=== PATIENT | female | born 1990 | race Caucasian/White ===

== ENCOUNTER 2017-10-24 07:00 | Emergency (ER) | payer SELFPAY ==
--- NOTE | 2017-10-24 09:54 | ER Document Report ---
ED General - General Chief Complaint: Facial Swelling Stated Complaint: POSSIBLE RASH Time Seen by Provider: 10/24/17 09:22 Mode of Arrival: Ambulatory Information source: Patient - HPI Patient complains to provider of: Rash on the face Onset: Other - 27-year-old otherwise healthy female presents for evaluation of a red rash on her face which developed this morning after her dog had laid on her pillow and then she subsequently slept on it. She notes that she woke up with itching watery eyes as well as itching in her ears and her also had a rash noted on his leg where it had touched the pillow. She denies any use of new detergents new closed new lotions or other things. She has never had any allergic reactions in the past, she denies any other rashes, shortness of breath, wheezing, chest pain abdominal pain diarrhea constipation dysuria or other symptoms. - Related Data Allergies/Adverse Reactions: No Known Allergies Allergy (Unverified 10/24/17 07:01) Past Medical History - General Information source: Patient - Social History Smoking Status: Unknown if Ever Smoked Family History: None Review of Systems - Review of Systems -: Yes All other systems reviewed and negative Physical Exam - Vital signs Vitals: Temp Pulse Resp BP Pulse Ox 99.0 F 95 18 125/75 97 10/24/17 07:05 10/24/17 07:05 10/24/17 07:05 10/24/17 07:05 10/24/17 07:05 - General General appearance: Appears well In distress: None - HEENT Head: Normocephalic Eyes: Normal Conjunctiva: Injected Extraocular movements intact: Yes Eyelashes: Normal Pupils: PERRL Ears: Normal External canal: Normal Neck: Normal - Respiratory Respiratory status: No respiratory distress Chest status: Nontender Breath sounds: Normal Chest palpation: Normal - Cardiovascular Rhythm: Regular Heart sounds: Normal auscultation Murmur: No - Abdominal Inspection: Normal Distension: No distension Tenderness: Nontender - Back Back: Normal - Extremities General upper extremity: Normal inspection, Normal strength General lower extremity: Normal inspection, Normal strength - Neurological Neuro grossly intact: Yes Cognition: Normal Orientation: AAOx4 - Psychological Associated symptoms: Normal affect - Skin Notes: The face demonstrates an erythematous, blanchable, slightly raised rash which extends from the superior aspect above both eyes underneath the cheeks extending in the left ear with some serous discharge. No obvious desquamation, negative nikolsky sign Course - Re-evaluation Re-evalutation: 10/24/17 18:42 19-year-old female has got what appears to be an allergic rash involving the face no other organ systems involved no other symptoms to suggest more serious anaphylactic reaction. Has not had any allergic reactions like this in the past , as such we will treat symptomatically with use of antihistamine as well as steroids. Encouraged to follow-up with an automatic lathe operator or primary care physician. Do not believe this represents a more serious underlying condition such as a malar rash or other is it is itchy rapid in onset. - Vital Signs Vital signs: Temp Pulse Resp BP Pulse Ox 98.8 F 82 16 126/74 H 100 10/24/17 10:08 10/24/17 10:08 10/24/17 10:08 10/24/17 10:08 10/24/17 10:08 Discharge - Discharge Clinical Impression: Itchy eyes Allergic Qualifiers: Encounter type: initial encounter Qualified Code(s): T78.40XA - Allergy, unspecified, initial encounter Condition: Good Disposition: HOME, SELF-CARE Instructions: Acute Allergic Reaction ([facility]), Contact Dermatitis ([facility]) Prescriptions: Cetirizine HCl [Zyrtec] 10 mg PO DAILY #20 capsule Prednisone [Deltasone 20 mg Tablet] 3 tab PO DAILY 5 Days #15 tablet Forms: Smoking Cessation Education
[2017-10-24 10:11] VITALS: BP 126/74
[2017-10-24] MEDS ORDERED: PREDNISONE 20 MG TABLET PO ONE (10:14)
== END 2017-10-24 10:53 | disposition home or self-care (01) ==
LOC: ER 07:00
DX: T78.40XA Allergy, unspecified, initial encounter (principal); R21 Rash and other nonspecific skin eruption; L29.8 Other pruritus; X58.XXXA Exposure to other specified factors, initial encounter
CPT/HCPCS: 99283; J7512

== ENCOUNTER 2018-08-08 16:32 | Emergency (ER) | payer SELFPAY ==
--- NOTE | 2018-08-08 16:53 | ER Document Report ---
ED Medical Screen (RME) - General Chief Complaint: Head Injury Stated Complaint: FALL/HEAD INJURY Time Seen by Provider: 08/08/18 16:52 Mode of Arrival: Ambulatory Information source: Patient Notes: Patient presents to the emergency department post head injury. 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 She reports she had a shunt since 2013. She reports she woke up this morning did not feel well went work anyways came home took a shower when she was walking to the kitchen she fell and hit the base of her head on the counter. She reports the right side of her neck is hurting where her shunt is placed. She reports vomiting since that time multiple times. No change in LOC. He is also complaining of left-sided abdominal pain now. Dictation of this chart was performed using voice recognition software; therefore, there may be some unintended grammatical errors. I have greeted and performed a rapid initial assessment of this patient. A comprehensive ED assessment and evaluation of the patient, analysis of test results and completion of the medical decision making process will be conducted by additional ED providers. TRAVEL OUTSIDE OF THE [place] IN LAST 30 DAYS: No - Related Data Allergies/Adverse Reactions: No Known Allergies Allergy (Unverified 10/24/17 07:01) Past Medical History Renal/ Medical History: Denies: Hx Peritoneal Dialysis
[2018-08-08] MEDS ORDERED: ONDANSETRON 4 MG TAB.RAPDIS PO ONE (16:54)
--- NOTE | 2018-08-08 17:24 | RADIOLOGY REPORT (SQ) ---
EXAM DESCRIPTION: CT HEAD WITHOUT COMPLETED DATE/TIME: 08/08/2018 5:05 pm REASON FOR STUDY: head injury, shunt COMPARISON: None. TECHNIQUE: Axial images acquired through the brain without intravenous contrast. Images reviewed wi th bone, brain and subdural windows. Additional sagittal and coronal reconstructions were generated. Images stored on PACS. All CT scanners at this facility use dose modulation, iterative reconstruction, and/or weight based d osing when appropriate to reduce radiation dose to as low as reasonably achievable (ALARA). [facility]: Dose Right [facility]: CareDose [facility]: Dose Right [facility]: Teradose 4D [facility]: Smart avandeo RADIATION DOSE: CT Rad equipment meets quality standard of care and radiation dose reduction techniq ues were employed. CTDIvol: 53.2 mGy. DLP: 1017 mGy-cm. mGy. LIMITATIONS: None. FINDINGS: VENTRICLES: There is mild ventriculomegaly for age with a right frontal approach shunt cat heter, tip projecting in the vicinity of the right thalamic head CEREBRUM: No masses. No hemorrhage. No midline shift. No evidence for acute infarction. Normal gra y/white matter differentiation. No areas of low density in the white matter. CEREBELLUM: No masses. No hemorrhage. No alteration of density. No evidence for acute infarction. EXTRAAXIAL SPACES: There is a mixed, although predominantly low-attenuation subdural collection about the left hemisphere measuring 9 mm in maximum coronal thickness. There is no significant midline sh ift. ORBITS AND GLOBE: No intra- or extraconal masses. Normal contour of globe without masses. CALVARIUM: No fracture. PARANASAL SINUSES: No fluid or mucosal thickening. SOFT TISSUES: No mass or hematoma. OTHER: No other significant finding. IMPRESSION: 1. There is a mixed, although predominantly low-attenuation subdural collection about th e left hemisphere measuring 9 mm in maximum coronal thickness. There is no significant midline shift . 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 2. There is mild ventriculomegaly for age with a right frontal approach shunt catheter, tip projectin g in the vicinity of the right thalamic head. EVIDENCE OF ACUTE STROKE: NO. Findings reported by telephone to Dr. Sarah, 1714 hours, 08/08/2018. COMMENT: Quality ID # [id number]: Final reports with documentation of one or more dose reduction techniques (e.g., Automated exposure control, adjustment of the mA and/or kV according to patient size, use of iterative reconstruction technique) TECHNICAL DOCUMENTATION: JOB ID: [id number] [employer]- All Rights Reserved Reading location - IP/workstation name: [email or web address]
--- NOTE | 2018-08-08 17:49 | ER Document Report ---
ED General - General Chief Complaint: Head Injury Stated Complaint: FALL/HEAD INJURY Time Seen by Provider: 08/08/18 16:52 Primary Care Provider: [facility] [Provider Group] - Follow up in 3-5 days (primary care. 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 Patient reports that she had a "dizzy spell" while she was in her kitchen today and fell and hit the back of her head on the counter. She denies loss of consciousness. She is now complaining of a mild headache that she describes as being her entire head. She explicitly states that it is not the worst headache she has had. She rates it as a 3/10, and as an aching sensation. She has associated nausea, without vomiting, reports that she has nausea almost every day of her life and it is not particularly worse today. She states that she does get episodes of lightheadedness ever since her HOME HOUSEKEEPER shunt was place. She had imaging in triage that demonstrated a likely chronic subdural hematoma, and when asked about this the patient reports that she has had "brain" bleeds in the past a few years ago. Denies any vision changes, neck pain, numbness, tingling, or weakness. Past Medical History: hydrocephalus Past Surgical History: HOME HOUSEKEEPER shunt Social History: Denies tobacco, alcohol, or drug use. Family History: Reviewed and noncontributory for presenting illness Allergies: Reviewed, see documented allergy list. REVIEW OF SYSTEMS: Other than noted above, the 12 point review of systems was reviewed with the patient and were negative, all pertinent findings are included in the HPI. PHYSICAL EXAMINATION: Vital signs reviewed, nursing noted reviewed. GENERAL: Well-appearing, well-nourished and in no acute distress. HEAD: Atraumatic, normocephalic. EYES: Eyes appear normal, extraocular movements intact, sclera anicteric, conjunctiva are normal. PERRLA ENT: nares patent, oropharynx clear without exudates. Moist mucous membranes. NECK: Normal range of motion, supple without lymphadenopathy LUNGS: Breath sounds clear to auscultation bilaterally and equal. No wheezes rales or rhonchi. HEART: Regular rate and rhythm without murmurs ABDOMEN: Soft, nontender, normoactive bowel sounds. No rebound, guarding, or rigidity. No masses appreciated. EXTREMITIES: Nontender, good range of motion, no pitting or edema. NEUROLOGICAL: No focal neurological deficits. Moves all extremities spontaneously Motor and sensory grossly intact on exam. PSYCH: Normal mood, normal affect. SKIN: Warm, Dry, normal turgor, no rashes or lesions noted on exposed skin TRAVEL OUTSIDE OF THE [place] IN LAST 30 DAYS: No - Related Data Allergies/Adverse Reactions: No Known Allergies Allergy (Unverified 10/24/17 07:01) Past Medical History - General Information source: Patient - Social History Smoking Status: Never Smoker Frequency of alcohol use: None Drug Abuse: Marijuana Family History: None Patient has suicidal ideation: No Patient has homicidal ideation: No Renal/ Medical History: Denies: Hx Peritoneal Dialysis Past Surgical History: Reports: Hx Gynecologic Surgery Physical Exam - Vital signs Vitals: Temp Pulse Resp BP Pulse Ox 98.7 F 110 H 16 137/75 H 100 08/08/18 16:55 08/08/18 16:55 08/08/18 16:55 08/08/18 16:55 08/08/18 16:55 Course - Re-evaluation Re-evalutation: 08/08/18 18:58 Patient seen and examined, vital signs reviewed. Patient appeared well on exam, no acute distress, only really complaining of mild nausea. Imaging results reviewed, CT demonstraed HOME HOUSEKEEPER shunt and like chronic subdural hematoma, but "could not completely excluded acute on chronic" Bloodwork unremarkable. Discussed with Dr. Rivas, with trauma surgery, who reviewed the patient's images and agreed with me that this was a chronic subdural hematoma, the patient verifies that she is had a history of "brain bleeds in the past" and I do not believe the patient sustained an acute on chronic subdural hematoma based on her imaging today, and her clinical presentation as the patient only complains of a mild headache that she on her own accord describes not the worst headache of her life, and has nausea that was easily resolved with a single dose of Reglan. Patient is feeling much better on my reevaluation, I feel that she can safely be discharged home, she is given referral to [facility] neurosurgery to establish care and follow-up. Patient is agreeable with all this plan of care advised to return to the emergency department she had any worsening symptoms. Laboratory 08/08/18 08/08/18 08/08/18 17:41 17:41 17:41 WBC 8.9 RBC 4.74 Hgb 15.1 Hct 43.9 MCV 93 MCH 31.9 MCHC 34.5 RDW 13.4 Plt Count 296 Seg Neutrophils % 74.5 Lymphocytes % 16.9 Monocytes % 7.8 Eosinophils % 0.3 Basophils % 0.5 Absolute Neutrophils 6.6 Absolute Lymphocytes 1.5 Absolute Monocytes 0.7 Absolute Eosinophils 0.0 Absolute Basophils 0.0 Sodium 144.0 Potassium 4.0 Chloride 106 Carbon Dioxide 25 Anion Gap 13 BUN 12 Creatinine 0.84 Est GFR ( Amer) > 60 Est GFR (Non-Af Amer) > 60 Glucose 87 Calcium 10.2 Total Bilirubin 0.6 Direct Bilirubin 0.3 Neonat Total Bilirubin Not Reportable Neonat Direct Bilirubin Not Reportable Neonat Indirect Bili Not Reportable AST 16 ALT 17 Alkaline Phosphatase 53 Total Protein 8.7 H Albumin 5.1 H Serum HCG, Qual NEGATIVE Head CT 08/08/18 16:54 IMPRESSION: 1. There is a mixed, although predominantly low-attenuation subdural collection about the left hemisphere measuring 9 mm in maximum coronal thickness. There is no significant midline shift. Findings likely reflect chronic subdural hematoma, however a component of acute on chronic hemorrhage is not strictly excluded. 2. There is mild ventriculomegaly for age with a right frontal approach shunt catheter, tip projecting in the vicinity of the right thalamic head. EVIDENCE OF ACUTE STROKE: NO. Findings reported by telephone to Dr. Sarah, 1714 hours, 08/08/2018. Shuntogram 08/08/18 17:24 IMPRESSION: There is a right frontal approach shunt catheter with catheter tubing projecting over the right skull, neck, hemithorax, and abdomen, with catheter tubing gently looped about the abdomen and pelvis, tip projecting over the left aspect of the sacrum. No catheter kinking or discontinuity. No acute abnormality of the lungs. Nonobstructive pattern of bowel gas. Essure devices project in the low pelvis. - Vital Signs Vital signs: Temp Pulse Resp BP Pulse Ox 98.7 F 110 H 27 H 141/82 H 99 08/08/18 16:55 08/08/18 16:55 08/08/18 19:01 08/08/18 19:00 08/08/18 19:01 - Laboratory Result Diagrams: 08/08/18 17:41 08/08/18 17:41 Laboratory results interpreted by me: 08/08/18 17:41 Total Protein 8.7 H Albumin 5.1 H Critical Care Note - Critical Care Note Total time excluding time spent on procedures (mins): 35 Comments: Critical care time 35 minutes exclusive from separate billable procedures for a patient requiring complex medical decision making, and high potential for clinical deterioration. In a patient with history of head bleed with head trauma, requiring consult with trauma surgery, close monitoring and evaluation. Time spent obtaining history from patient or surrogate, discussions with consultants, development of treatment plan with patient or surrogate, evaluation of patient's response to treatment, examination of patient, ordering and performing treatments and interventions, ordering and review of laboratory studies, re-evaluation of patient's condition, ordering and review of radiographic studies and review of old charts Discharge - Discharge Clinical Impression: Nausea, Lightheadedness Closed head injury Qualifiers: Encounter type: initial encounter Qualified Code(s): S09.90XA - Unspecified injury of head, initial encounter Condition: Stable Disposition: HOME, SELF-CARE Instructions: Head Injury Precautions ([facility]) Additional Instructions: Please monitor for worsening symptoms, if you develop numbness, weakness or tingling in any extremity, if your headache gets worse, do not hesitate to return to the emergency department to be reevaluated. Please follow-up with [facility] neurosurgery, phone number is call to schedule appointment. Prescriptions: Metoclopramide HCl [Reglan 10 mg Tablet] 1 tab PO Q8H PRN #15 tablet PRN Reason: nausea/vomiting Referrals: [facility] [Provider Group] - Follow up in 3-5 days (primary care. )
[2018-08-08] MEDS ORDERED: METOCLOPRAMIDE HCL INJ/PF 10 MG/2 ML SDV IV ONE (18:02)
[2018-08-08 18:07] LABS: ABSOLUTE LYMPHOCYTES (AUTO) 1.5 10^3/uL (0.5-4.7); ABSOLUTE MONOCYTES (AUTO) 0.7 10^3/uL (0.1-1.4); ABSOLUTE NEUT (AUTO) 6.6 10^3/uL (1.7-8.2); BASOPHILS % (AUTO) 0.5 % (0-2); EOSINOPHILS % (AUTO) 0.3 % (0-6); HEMATOCRIT 43.9 % (36.0-47.0); HEMOGLOBIN 15.1 g/dL (12.0-15.5); LYMPHOCYTES % (AUTO) 16.9 % (13-45); MEAN CORPUSCULAR HEMOGLOBIN 31.9 pg (27.0-33.4); MEAN CORPUSCULAR HGB CONC 34.5 g/dL (32.0-36.0); MEAN CORPUSCULAR VOLUME 93 fl (80-97); MONOCYTES % (AUTO) 7.8 % (3-13); PLATELET COUNT 296 10^3/uL (150-450); RED BLOOD COUNT 4.74 10^6/uL (3.72-5.28); RED CELL DISTRIBUTION WIDTH 13.4 % (11.5-14.0); SEGMENTED NEUTROPHILS % (AUTO) 74.5 % (42-78); TOTAL CELLS COUNTED % (AUTO) 100 %; WHITE BLOOD COUNT 8.9 10^3/uL (4.0-10.5)
--- NOTE | 2018-08-08 18:08 | RADIOLOGY REPORT (SQ) ---
EXAM DESCRIPTION: SHUNTOGRAM SERIES COMPLETED DATE/TIME: 08/08/2018 5:52 pm REASON FOR STUDY: hx shunt, head injury COMPARISON: None. TECHNIQUE: Shunt series radiographs of the AP head and neck, chest, and abdomen. LIMITATIONS: None. FINDINGS: There is a right frontal approach shunt catheter with catheter tubing projecting over the right skull, neck, hemithorax, and abdomen, with catheter tubing gently looped about the abdomen and pelvis, tip projecting over the left aspect of the sacrum. No catheter kinking or discontinuity. No acute abnormality of the lungs. Nonobstructive pattern of bowel gas. Essure devices project in the low pelvis. IMPRESSION: There is a right frontal approach shunt catheter with catheter tubing projecting over th e right skull, neck, hemithorax, and abdomen, with catheter tubing gently looped about the abdomen an d pelvis, tip projecting over the left aspect of the sacrum. No catheter kinking or discontinuity. No acute abnormality of the lungs. Nonobstructive pattern of bowel gas. Essure devices project in t he low pelvis. TECHNICAL DOCUMENTATION: JOB ID: [id number] [employer]- All Rights Reserved Reading location - IP/workstation name: [email or web address]
[2018-08-08 18:35] LABS: ALANINE AMINOTRANSFERASE 17 U/L (9-52); ALBUMIN 5.1 g/dL (3.5-5.0); ALKALINE PHOSPHATASE 53 U/L (38-126); ANION GAP 13 (5-19); ASPARTATE AMINO TRANSFERASE 16 U/L (14-36); BILIRUBIN,DIRECT 0.3 mg/dL (0.0-0.4); BILIRUBIN,TOTAL 0.6 mg/dL (0.2-1.3); BLOOD UREA NITROGEN 12 mg/dL (7-20); CALCIUM 10.2 mg/dL (8.4-10.2); CARBON DIOXIDE 25 mmol/L (22-30); CHLORIDE 106 mmol/L (98-107); GLUCOSE 87 mg/dL (75-110); TOTAL PROTEIN 8.7 g/dL (6.3-8.2)
[2018-08-08 19:13] VITALS: BP 141/82
== END 2018-08-08 19:25 | disposition home or self-care (01) ==
LOC: ER 16:32
DX: S09.90XA Unspecified injury of head, initial encounter (principal); R11.0 Nausea; R42 Dizziness and giddiness; W19.XXXA Unspecified fall, initial encounter; Z98.2 Presence of cerebrospinal fluid drainage device
CPT/HCPCS: 99285; 96374; 36415; 84703; 85025; 80053; 75809; 70450; S0119; J2765

== ENCOUNTER 2018-11-28 09:21 | Emergency (ER) | payer SELFPAY ==
[2018-11-28] MEDS ORDERED: MECLIZINE HCL 25 MG TABLET PO ONE (09:54)
[2018-11-28] MEDS ORDERED: ONDANSETRON HCL INJ/PF 4 MG/2 ML SDV IV ONE (09:54)
[2018-11-28] MEDS ORDERED: NORMAL SALINE 1000 ML 1,000 ML IV ONE (09:59)
--- NOTE | 2018-11-28 10:02 | ER Document Report ---
ED General - General Chief Complaint: Headache Stated Complaint: DIZZINESS Primary Care Provider: VERNON AVERY MD [ACTIVE STAFF] - Follow up as needed GWEN HOBBS MD [ACTIVE STAFF] - Follow up in 3-5 days TRAVEL OUTSIDE OF THE [place] IN LAST 30 DAYS: No - HPI Notes: Patient is a 28-year-old female with a history of STEEL HEATER shunt, chronic recurrent abdominal pain who presents complaining of mild headache, dizziness, nausea/vomiting, generalized abdominal discomfort that does not radiate over the past couple days. Patient states that she usually has abdominal pain. Patient is mainly concerned because of the STEEL HEATER shunt and wanted evaluated. She is otherwise urinating normally and having normal bowel movements with the last one this morning. No recent illness. This is not the worst PARK of her life and did not start like a 'thunderclap.' Denies any fever, head injury, neck pain, changes in vision/speech/mentation/hearing, URI, sore throat, chest pain, palpitations, syncope, cough, shortness of breath, wheeze, dyspnea, diarrhea, urinary retention, dysuria, hematuria, loss of control of bowel or bladder, numbness/tingling, saddle anesthesia, muscle paralysis/weakness, or rash. - Related Data Allergies/Adverse Reactions: No Known Allergies Allergy (Verified 11/28/18 09:46) Past Medical History - Social History Smoking Status: Never Smoker Chew tobacco use (# tins/day): No Frequency of alcohol use: Occasional Drug Abuse: None Family History: None Patient has suicidal ideation: No Patient has homicidal ideation: No Renal/ Medical History: Denies: Hx Peritoneal Dialysis Past Surgical History: Reports: Hx Gynecologic Surgery Review of Systems - Review of Systems -: Yes All other systems reviewed and negative Physical Exam - Vital signs Vitals: Temp Pulse Resp BP Pulse Ox 97.7 F 85 16 124/70 98 11/28/18 09:28 11/28/18 09:28 11/28/18 09:28 11/28/18 09:28 11/28/18 09:28 - Notes Notes: PHYSICAL EXAMINATION: GENERAL: Well-appearing, well-nourished and in no acute distress. A&Ox4. Answers questions appropriately. HEAD: Atraumatic, normocephalic. Non-tender. EYES: Pupils equal round and reactive to light, extraocular movements intact, sclera anicteric, conjunctiva are normal. No nystagmus. vis torrez intact. ENT: Nares patent and without discharge. oropharynx clear without exudates. No tonsilar hypertrophy or erythema. Moist mucous membranes. NECK: Normal range of motion, supple without lymphadenopathy. No rigidity/meningismus. No midline tenderness. LUNGS: Breath sounds clear to auscultation bilaterally and equal. No wheezes rales or rhonchi. HEART: Regular rate and rhythm without murmurs, rubs, gallops. ABDOMEN: Soft, nondistended abdomen. No guarding, no rebound. Normal bowel sounds present. No CVA tenderness bilaterally. Very mild generalized tenderness. Phan neg. No tenderness at [place]. Musculoskeletal: Ext b/l: FROM to passive/active. Strength 5+/5. No deficits noted. No bony tenderness of extremities. Extremities: No cyanosis, clubbing, or edema b/l. Peripheral pulses 2+. Capillary refill less than 2 seconds. NEUROLOGICAL: NIH 0. GCS 15. Cranial nerves grossly intact. Normal speech, normal gait. Normal sensory, motor exams. Reflexes 2+ b/l. DANITZA's negative. Pronator drift negative. Heel/oshea, finger/nose wnl. Romberg neg. PSYCH: Normal mood, normal affect. SKIN: Warm, Dry, normal turgor, no rashes or lesions noted. Course - Re-evaluation Re-evalutation: 11/28/18 10:[address] Leal, we will start with labs/imaging and provide fluids. 11/28/18 11:32 Patient is an afebrile, well-hydrated, 28-year-old female who presents with chronic abdominal pain, unspecified, dizziness/nausea/vomiting, suspect viral. Vitals are acceptable without significant tachycardia, tachypnea, or hypoxia. PE is otherwise unremarkable. Patient's abdomen is soft throughout. Patient has had this pain for a "long time" which has been evaluated by a medical facility in [place] with CT scans and she has talked with GI providers in the past, but never had endoscopy or colonoscopy performed. Patient states that the pain pattern is generalized and wraps around her abdomen which has been the same since previous/initial onset. CT of the head as well as shunt series including KUB within the series was unremarkable for acute pathology aside from some stool burden noted. Her PARK, dizziness, n/v have resolved. Labs are unremarkable for acute pathology. No further work-up warranted at this time. I reviewed the risk and benefit of continued CT imaging as she has had CTs performed already on her abdomen for the same issue in the past. Patient declined CT at this time which I am in agreement with. I did review with Dr. Leal as well who is in agreement with dispo/plan with strict return precautions. Low suspicion/risk for acute appendicitis, bowel obstruction, acute cholecystitis, acute cholangitis, perforated diverticulitis, incarcerated hernia, pancreatitis, perforated ulcer, peritonitis, sepsis, pelvic inflammatory disease, ectopic , tubo-ovarian abscess, ovarian torsion, or other systemic emergent condition at this time. Patient is aware that her condition can change from initial presentation and she needs to monitor symptoms closely and seek medical attention if any acute changes. Conservative measures otherwise for symptoms. Recheck with your PCM in 2-3 days. Schedule consult with a foundry supervisor. Return to the ED with any worsening/concerning symptoms otherwise as reviewed in discharge. Patient is in agreement. - Vital Signs Vital signs: Temp Pulse Resp BP Pulse Ox 97.7 F 85 16 124/70 98 11/28/18 09:28 11/28/18 09:28 11/28/18 09:28 11/28/18 09:28 11/28/18 09:28 - Laboratory Result Diagrams: 11/28/18 10:08 11/28/18 10:08 Laboratory results interpreted by me: 11/28/18 10:08 Lymph % (Auto) 10.0 L Absolute Neuts (auto) 8.4 H Seg Neutrophils % 83.5 H Discharge - Discharge Clinical Impression: Nonspecific abdominal pain, Dizziness Headache Qualifiers: Headache type: unspecified Headache chronicity pattern: acute headache Intractability: not intractable Qualified Code(s): R51 - Headache Nausea and vomiting Qualifiers: Vomiting type: unspecified Vomiting Intractability: non-intractable Qualified Code(s): R11.2 - Nausea with vomiting, unspecified Condition: Stable Disposition: HOME, SELF-CARE Instructions: Abdominal Pain ([facility]), Antinausea Medication ([facility]), Headache ([facility]), Vomiting ([facility]) Additional Instructions: Maintain adequate fluid and food intake Wheeler diet (B.R.A.T.) Bananas, rice, apples, toast, etc Zofran as needed tylenol if needed Monitor for any worsening symptoms Make sure you are staying hydrated enough to urinate and have normal BM's Recheck with your PCM in 2-3 days Schedule consult with Gastroenterology Return to the ED with any worsening symptoms and/or development of fever, headache, changes in behavior/mentation/vision/speech, chest pain, palpitations, syncope, shortness of breath, trouble breathing, worsening abdominal pain, n/v/d, blood in stool/urine, loss of control of bowel/bladder, urinary retention, muscle weakness/paralysis, saddle anesthesia, numbness/tingling, or other worsening symptoms that are concerning to you. Prescriptions: Polyethylene Glycol 3350 [Miralax] 1 cap PO DAILY #527 powder Ondansetron [Zofran Odt 4 mg Tablet] 1 - 2 tab PO Q4H PRN #15 tab.rapdis PRN Reason: For Nausea/Vomiting Referrals: VERNON AVERY MD [ACTIVE STAFF] - Follow up as needed GWEN HOBBS MD [ACTIVE STAFF] - Follow up in 3-5 days
[2018-11-28 10:32] LABS: ABSOLUTE EOSINOPHILS # (AUTO) 0.1 10^3/uL (0.0-0.6); ABSOLUTE MONOCYTES (AUTO) 0.6 10^3/uL (0.1-1.4); ABSOLUTE NEUT (AUTO) 8.4 10^3/uL (1.7-8.2); BASOPHILS % (AUTO) 0.2 % (0-2); EOSINOPHILS % (AUTO) 0.6 % (0-6); HEMOGLOBIN 14.2 g/dL (12.0-15.5); MEAN CORPUSCULAR HEMOGLOBIN 31.8 pg (27.0-33.4); MEAN CORPUSCULAR HGB CONC 34.6 g/dL (32.0-36.0); MEAN CORPUSCULAR VOLUME 92 fl (80-97); MONOCYTES % (AUTO) 5.7 % (3-13); PLATELET COUNT 276 10^3/uL (150-450); RED BLOOD COUNT 4.46 10^6/uL (3.72-5.28); SEGMENTED NEUTROPHILS % (AUTO) 83.5 % (42-78); TOTAL CELLS COUNTED % (AUTO) 100 %; WHITE BLOOD COUNT 10.1 10^3/uL (4.0-10.5)
[2018-11-28 10:42] LABS: APPEARANCE,URINE SLIGHTLY-CLOUDY; BILIRUBIN,URINE NEGATIVE (NEGATIVE); COLOR,URINE YELLOW; GLUCOSE, URINE NEGATIVE (NEGATIVE); KETONES,URINE NEGATIVE (NEGATIVE); LEUKOCYTE ESTERASE,URINE NEGATIVE (NEGATIVE); NITRITE,URINE NEGATIVE (NEGATIVE); PROTEIN,URINE NEGATIVE (NEGATIVE); URINE SPECIFIC GRAVITY 1.009; UROBILINOGEN,URINE NEGATIVE mg/dL (<2.0)
[2018-11-28 10:49] LABS: INTERNATIONAL RATION (INR) 0.89
[2018-11-28 10:50] LABS: PARTIAL THROMBOPLASTIN TIME 26.1 SEC (23.5-35.8)
--- NOTE | 2018-11-28 10:50 | RADIOLOGY REPORT (SQ) ---
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 TECHNIQUE: Axial images acquired through the brain without intravenous contrast. Images reviewed wi th bone, brain and subdural windows. Additional sagittal and coronal reconstructions were generated. Images stored on PACS. All CT scanners at this facility use dose modulation, iterative reconstruction, and/or weight based d osing when appropriate to reduce radiation dose to as low as reasonably achievable (ALARA). [facility]: Dose Right [facility]: CareDose [facility]: Dose Right [facility]: Teradose 4D [facility]: Smart [employer] RADIATION DOSE: CT Rad equipment meets quality standard of care and radiation dose reduction techniq ues were employed. CTDIvol: 53.2 mGy. DLP: 1070 mGy-cm. mGy. LIMITATIONS: None. FINDINGS: VENTRICLES: Stable ventriculomegaly. Stable shunt tubing entering the right frontal lobe with its tip at the level of the right lateral ventricle. CEREBRUM: No masses. No hemorrhage. No midline shift. No evidence for acute infarction. Normal gra y/white matter differentiation. No areas of low density in the white matter. CEREBELLUM: No masses. No hemorrhage. No alteration of density. No evidence for acute infarction. EXTRAAXIAL SPACES: Stable subdural fluid collection overlying the left cerebral hemisphere. ORBITS AND GLOBE: No intra- or extraconal masses. Normal contour of globe without masses. CALVARIUM: No fracture. PARANASAL SINUSES: No fluid or mucosal thickening. SOFT TISSUES: No mass or hematoma. OTHER: No other significant finding. IMPRESSION: STABLE APPEARANCE. STABLE VENTRICULOMEGALY WITH SHUNT TUBING. STABLE SUBDURAL FLUID CO LLECTION OVERLYING THE LEFT CEREBRAL HEMISPHERE. NO ACUTE FINDINGS. EVIDENCE OF ACUTE STROKE: NO. COMMENT: Quality ID # [id number]: Final reports with documentation of one or more dose reduction techniques (e.g., Automated exposure control, adjustment of the mA and/or kV according to patient size, use of iterative reconstruction technique) TECHNICAL DOCUMENTATION: JOB ID: [id number] [employer]- All Rights Reserved Reading location - IP/workstation name: [email or web address]
[2018-11-28 10:54] LABS: ALBUMIN 4.7 g/dL (3.5-5.0); ALKALINE PHOSPHATASE 59 U/L (38-126); ANION GAP 10 (5-19); ASPARTATE AMINO TRANSFERASE 20 U/L (14-36); BILIRUBIN,DIRECT 0.1 mg/dL (0.0-0.4); BILIRUBIN,TOTAL 0.5 mg/dL (0.2-1.3); BLOOD UREA NITROGEN 9 mg/dL (7-20); CALCIUM 9.4 mg/dL (8.4-10.2); CARBON DIOXIDE 28 mmol/L (22-30); CHLORIDE 103 mmol/L (98-107); GLUCOSE 104 mg/dL (75-110); POTASSIUM 3.9 mmol/L (3.6-5.0); TOTAL PROTEIN 8.2 g/dL (6.3-8.2)
--- NOTE | 2018-11-28 10:59 | RADIOLOGY REPORT (SQ) ---
EXAM DESCRIPTION: SHUNTOGRAM SERIES COMPLETED DATE/TIME: 11/28/2018 10:40 am REASON FOR STUDY: dizziness COMPARISON: 08/08/2018. TECHNIQUE: Frontal views of the head, neck, chest, abdomen, and pelvis. LIMITATIONS: None. FINDINGS: Should tubing entering the right upper skull with the tip just to the right of midline. S [place] tubing along the right side of body with the distal portion in the pelvis. No visualized discon tinuity although portions of the tubing are difficult to visualize in the thorax due to overlap with the spine. The lungs are clear. Bowel gas pattern is nonspecific. Bony structures are grossly inta ct. IMPRESSION: SHUNT TUBING APPEARS GROSSLY INTACT, ALTHOUGH PORTIONS IN THE THORACIC REGION ARE DIFFIC ULT TO VISUALIZE. TECHNICAL DOCUMENTATION: JOB ID: [id number] [employer]- All Rights Reserved Reading location - IP/workstation name: [email or web address]
[2018-11-28] MEDS ORDERED: KETOROLAC TROMETHAMINE INJ/PF 30 MG/1 ML SDV IV ONE (11:40)
[2018-11-28 12:44] VITALS: BP 116/77
== END 2018-11-28 12:46 | disposition home or self-care (01) ==
LOC: ER 09:21
DX: R51 Headache (principal); R42 Dizziness and giddiness; R11.2 Nausea with vomiting, unspecified; R10.84 Generalized abdominal pain; G89.29 Other chronic pain; R10.817 Generalized abdominal tenderness; Z45.41 Encounter for adjustment and management of cerebrospinal fluid drainage device
CPT/HCPCS: 99284; 96361; 96374; 96375; 36415; 87040; 83690; 85025; 85610; 85730; 80053; 81001; 75809; 70450; J1885; J2405; J7030

== ENCOUNTER 2019-04-04 11:54 | Emergency (ER) | payer OTHER ==
[2019-04-04 12:06] VITALS: BP 118/67
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
[2019-04-04 15:14] LABS: ABSOLUTE EOSINOPHILS # (AUTO) 0.1 10^3/uL (0.0-0.6); ABSOLUTE LYMPHOCYTES (AUTO) 1.3 10^3/uL (0.5-4.7); ABSOLUTE MONOCYTES (AUTO) 0.7 10^3/uL (0.1-1.4); ABSOLUTE NEUT (AUTO) 6.2 10^3/uL (1.7-8.2); BASOPHILS % (AUTO) 0.3 % (0-2); EOSINOPHILS % (AUTO) 0.8 % (0-6); HEMATOCRIT 42.9 % (36.0-47.0); HEMOGLOBIN 14.8 g/dL (12.0-15.5); LYMPHOCYTES % (AUTO) 15.6 % (13-45); MEAN CORPUSCULAR HGB CONC 34.6 g/dL (32.0-36.0); MEAN CORPUSCULAR VOLUME 92 fl (80-97); MONOCYTES % (AUTO) 8.2 % (3-13); PLATELET COUNT 288 10^3/uL (150-450); RED BLOOD COUNT 4.64 10^6/uL (3.72-5.28); RED CELL DISTRIBUTION WIDTH 13.1 % (11.5-14.0); SEGMENTED NEUTROPHILS % (AUTO) 75.1 % (42-78); TOTAL CELLS COUNTED % (AUTO) 100 %; WHITE BLOOD COUNT 8.2 10^3/uL (4.0-10.5)
[2019-04-04 15:18] LABS: APPEARANCE,URINE SLIGHTLY-CLOUDY; BILIRUBIN,URINE NEGATIVE (NEGATIVE); COLOR,URINE YELLOW; GLUCOSE, URINE NEGATIVE (NEGATIVE); KETONES,URINE NEGATIVE (NEGATIVE); PROTEIN,URINE NEGATIVE (NEGATIVE); URINE SPECIFIC GRAVITY 1.017; UROBILINOGEN,URINE NEGATIVE mg/dL (<2.0)
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
[2019-04-04 15:35] LABS: URINE AMPHETAMINES SCREEN NEGATIVE; URINE BARBITURATES SCREEN NEGATIVE; URINE BENZODIAZEPINES SCREEN NEGATIVE; URINE COCAINE SCREEN NEGATIVE; URINE METHADONE SCREEN NEGATIVE; URINE PHENCYCLIDINE SCREEN NEGATIVE
[2019-04-04 15:39] LABS: URINE MARIJUANA (THC) SCREEN UNCONFIRMED POSITIVE
== END 2019-04-04 16:57 | disposition home or self-care (01) ==
LOC: ER 11:54
DX: S00.81XA Abrasion of other part of head, initial encounter (principal); S10.91XA Abrasion of unspecified part of neck, initial encounter; S20.319A Abrasion of unspecified front wall of thorax, initial encounter; R42 Dizziness and giddiness; V87.7XXA Person injured in collision between other specified motor vehicles (traffic), initial encounter
CPT/HCPCS: 36415; 70450; 75809; 80307; 81001; 81025; 85025; 99283

== ENCOUNTER → 2019-09-14 | Outpatient (CLI) | payer SELFPAY ==
[2019-09-14 10:59] VITALS: BP 117/58
--- NOTE | 2019-09-14 10:59 | ER [facility] ASSESSMENT REPORT ---
Intake - In the Last 14 days Have you traveled outside [place]?: No Have you been in close contact with someone CONFIRMED: No Worked in Healthcare?: No - Symptoms Subjective Fever([place] feverish): Yes Chills: Yes Muscule Aches: Yes Runny Nose: Yes Sore Throat: Yes Cough (New or worsening chronic cough): Yes Shortness of breath: Yes Nausea or Vomiting: Yes Headache: Yes Abdominal Pain: No Diarrhea(3 or more loose stools in last 24 hours): No - Do you have any of the following Chronic lung disease: Asthma or emphysema or COPD: No Cystic Fibrosis: No Diabetes: No High Blood Pressure: No Cardiovascular Disease: No Chronic Kidney Disease: No Chronic Liver Disease: No Chronic blood disorder like Sickle Cell Disease: No Weak immune system due to disease or medication: No Neurologic condition that limits movement: No Developmental delay - Moderate to Severe: No Recent (within past 2 weeks) or current : No Morbid Obesity (>100 pounds over ideal weight): No - Objective Temperature: 98.3 F Pulse Rate: 88 Respiratory Rate: 16 Blood Pressure: 117/58 O2 Sat by Pulse Oximetry: 96 Objective: Given above, testing performed: If Testing Performed: Test Specimen Type Sent to General - General Information source: Patient Notes: Patient presents to the [facility] for screening for the coronavirus. Patient states that she has had fever, chills, body aches, congestion and sore throat shortness of breath nausea vomiting the past 2 days. - Related Data Allergies/Adverse Reactions: No Known Allergies Allergy (Verified 04/04/19 12:54) Past Medical History - General Information source: Patient - Social History Smoking Status: Never Smoker Frequency of alcohol use: None Drug Abuse: None Family History: None - Medical History Medical History: Negative Renal/ Medical History: Denies: Hx Peritoneal Dialysis Past Surgical History: Reports: Hx Gynecologic Surgery, Hx [employer] [facility] [employer] there is a specific Physical Exam - Notes Notes: Full physical exam could not be performed due to covid 19 isolation protocols. Constitutional: Nontoxic appearance, no acute distress Eyes: Nonicteric, extraocular movements intact, sclera clear Cardiovascular: Heart rate and rhythm regular, no JVD Respiratory: Breath sounds clear bilaterally, nonlabored breathing, no use of accessory muscles, no tachypnea Gastrointestinal: Abdomen not distended Muculoskeletal: Moves all extremities well, normal gait Skin: Normal color Neuro: Awake alert oriented, normal speech Psych: Normal mood and affect Diagnostic Results Laboratory Results: The patient was evaluated during the global Covid 19 pandemic, and that diagnosis was suspected/considered upon their initial presentation. Their evaluation, treatment and testing was consistent with current guidelines for patients who present with complaints or symptoms that may be related to Covid 19. Patient presents with upper respiratory symptoms worrisome for possible Covid 19. Patient does not have emergency worrying symptoms such as difficulty breathing, shortness of breath, chest pain, pressure, confusion or cyanosis. Patient appears suitable for discharge as they are not of an advanced age, do not have any chronic medical conditions such as diabetes, CAD, immune deficiency, chronic lung disease or chronic kidney disease. Patient's vital signs are stable and patient is nontoxic in appearance. Good return precautions have been discussed with patient, patient verbalized understanding and is agreeable with discharge plan of care at this time. Patient Education/Counseling Counseling/Education: Patient was provided with discharge information including: As a person under investigation for Covid 19, the [facility] of Health and Human Services, division of public health advises you to adhere to the following guidance until your test results are reported to you. If your test result is positive, you will receive additional information from your provider and your local health department at that time. Remain at home until you are cleared by the health provider or public health authorities. Keep a log of visitors to your home, notify any visitors to your home of your isolation status. If you plan to move to a new address or leave the county, notify the local health department in your County. Call your doctor or seek care if you have an urgent medical need. Before seeking medical care, call ahead to get instructions from the provider before arriving at the medical office clinic or hospital. Notify them that you are being tested for the virus that causes Covid 19 so that arrangements can be made, as necessary, to prevent transmission to others in the healthcare setting. Next, notify the local health department in your county. If a medical emergency arises and you need to call 911, inform the first responders that you are being tested for the virus that causes Covid 19. Next, notify the local health department in your county. [facility] Discharge - Discharge Clinical Impression: Encounter for screening laboratory testing for COVID-19 virus Condition: Stable Disposition: Home; Selfcare
== END ==
LOC: RDC 08:56
PROVIDERS: ATTEND Nurse Practitioner Family
DX: Z20.828 Contact with and (suspected) exposure to other viral communicable diseases (principal); R50.9 Fever, unspecified; J02.9 Acute pharyngitis, unspecified; R05 Cough; R06.02 Shortness of breath; M79.10 Myalgia, unspecified site; R09.89 Other specified symptoms and signs involving the circulatory and respiratory systems; R11.2 Nausea with vomiting, unspecified; R51 Headache
CPT/HCPCS: 87070; 87880; 87635; C9803; 99201; 99211